=== PATIENT | male | born 1955 | race Caucasian/White ===

== ENCOUNTER → 2020-03-05 | Outpatient (CLI) | payer OTHER ==
[~2020-03-05] MED LIST: AUGMENTIN 875875 M1 PO; CRESTOR10 MG; NOHOMEMEDICATIONS; NORCO 5-325 TA1 EACH PO; PERCOCET 5-3251 EACH PO; TAMSULOSIN HCL0.4 MG PO
== END ==
LOC: M.MRI 08:30
PROVIDERS: ATTEND Nurse Practitioner Family
DX: N28.1 Cyst of kidney, acquired (principal)